=== PATIENT | male | born 1985 | race Caucasian/White ===

== ENCOUNTER 2017-04-21 18:41 | Emergency (ER) | payer OTHER ==
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
== END 2017-04-21 19:08 | disposition left against medical advice (07) ==
LOC: ER 18:41
DX: R41.89 Other symptoms and signs involving cognitive functions and awareness (principal); T54.94XA Toxic effect of unspecified corrosive substance, undetermined, initial encounter; Z74.3 Need for continuous supervision
CPT/HCPCS: 99283; A0425; A0427